=== PATIENT | male | born 1960 | race Caucasian/White ===

== ENCOUNTER 2019-02-03 07:06 | Day surgery (SDC) | payer BC ==
[2019-01-30 16:39] LABS: BASOPHILS # (AUTO) 0.1 X10'3 (0-0.2); BASOPHILS % (AUTO) 0.5 % (0-1); EOSINOPHILS # (AUTO) 0.2 X10'3 (0-0.9); EOSINOPHILS % (AUTO) 2.4 % (0-6); LYMPHOCYTES # (AUTO) 3.3 X10'3 (1.1-4.8); LYMPHOCYTES % (AUTO) 33.9 % (21-51); MEAN CORPUSCULAR HEMOGLOBIN 30.2 PG (27.0-31.0); MEAN CORPUSCULAR HGB CONC 32.9 g/dL (33.0-36.5); MEAN CORPUSCULAR VOLUME 91.7 FL (78-98); MEAN PLATELET VOLUME 7.1 FL (7.4-10.4); MONOCYTES # (AUTO) 0.9 X10'3 (0-0.9); MONOCYTES % (AUTO) 8.7 % (2-12); NEUTROPHILS # (AUTO) 5.4 X10'3 (1.8-7.7); NEUTROPHILS % (AUTO) 54.5 % (42-75); PRE OP HEMATOCRIT 45.9 % (42.0-52.0); PRE OP HEMOGLOBIN 15.1 g/dL (14.0-17.9); PRE OP PLATELET COUNT 196 X10'3 (140-440); RED BLOOD COUNT 5.01 X10'6 (4.70-6.10); RED CELL DISTRIBUTION WIDTH 13.8 % (11.5-14.5)
[2019-01-30 16:47] LABS: ALBUMIN 3.7 G/DL (3.4-5.0); ALBUMIN/GLOBULIN RATIO 1.1 (1.1-1.5); ALKALINE PHOSPHATASE 61 IU/L (46-116); BLOOD UREA NITROGEN 20 MG/DL (7-18); CALCIUM 9.3 MG/DL (8.5-10.1); CHLORIDE 106 MMOL/L (99-107); CREATININE 0.74 MG/DL (0.60-1.10); PRE OP ALT 34 U/L (30-65); PRE OP ANION GAP 8 (8-16); PRE OP AST 19 U/L (10-37); PRE OP BILIRUB, TOTAL 0.5 MG/DL (0.0-1.0); PRE OP GLUCOSE 86 MG/DL (70-104); PRE OP SODIUM 142 MMOL/L (135-145); TOTAL PROTEIN 7.1 G/DL (6.4-8.2); eGFR > 90 ML/MIN
[~2019-02-03] VITALS: Ht 177.8 cm; Wt 133.1 kg
[~2019-02-03 07:06] MED LIST: ATOR10TA70 PO; CETI-194 PO; LISI2.5T2 PO; PSYL3.4P5 PO; cefazolin/dext.iso 2gm/100 ML IV ONE; famotidine 20mg tablet PO ONE; ringers solution, lacted 1,000 ML IV SCH
[2019-02-03] MEDS ORDERED: proCHLORperazine 10 MG/2 ml inj IV PRN (07:25)
[2019-02-03] MEDS ORDERED: meperidine/PF 25mg/ml syringe IV PRN ×3 (07:25)
[2019-02-03] MEDS ORDERED: ondansetron/PF 4mg/2ml inj IV PRN (07:25)
[2019-02-03] MEDS ORDERED: ringers solution, lacted 1,000 ML IV SCH (07:25)
[2019-02-03] MEDS ORDERED: morphine 4 MG/ML inj SYRINge IV PRN ×2 (07:25)
[2019-02-03] MEDS ORDERED: LIDOcaine 1% 30ml preserv. free vial ONE (07:32)
[2019-02-03 08:57] VITALS: BP 133/75
[2019-02-03] MEDS ORDERED: MIDAZolam 5mg/5ml vial ONE (08:58)
[2019-02-03] MEDS ORDERED: fentaNYL/PF 50MCG/1 ML 2ML syringe ONE (08:58)
[2019-02-03 08:59] VITALS: BP 133/75
[2019-02-03] MEDS ORDERED: BUPIVAcaine/PF 2.5mg/ml (0.25%) 10ml vial ONE (09:01)
[2019-02-03] MEDS ORDERED: ketorolac trometh. 30mg/ml inj. ONE (09:16)
[2019-02-03] MEDS ORDERED: meperidine/PF 50mg/ml syringe ONE (09:47)
[2019-02-03 10:05] VITALS: BP 132/91
--- NOTE | 2019-02-03 10:05 | NUR ---
Received from OR via BED, accompanied by Anesthesiologist DR KIMBLE and report given by Anesthesiolgist. PATIENT A&OX4, DENIES PAIN, V/S WNL, NEUROVASCULAR CHECKS INTACT, SCD ON, RIGHT WRIST DRESSING CDI ELEVATED WITH ICE BAG APPLIED. 20G LUE.
[2019-02-03 10:15] VITALS: BP 129/81
[2019-02-03 10:25] VITALS: BP 133/74
[2019-02-03 10:35] VITALS: BP 136/77
--- NOTE | 2019-02-03 10:35 | NUR ---
PATIENT A&OX4, DENIES PAIN, V/S WNL, NEUROVASCULAR CHECKS INTACT, SCD OFF, RIGHT WRIST DRESSING CDI ELEVATED WITH ICE BAG APPLIED. 20G LUE D/C WITH NO COMPLICATIONS OBSERVED. I HAVE REVIEWED D/C INSTRUCTIONS WITH PATIENT AND FAMILY AND THEY HAVE VERBALIZED UNDERSTANDING. PATIENT D/C HOME WITH FAMILY TO TRANSPORT AND ALL BELONGINGS..
== END 2019-02-03 10:35 | disposition home or self-care (01) ==
LOC: PAS 07:06
PROVIDERS: ATTEND Orthopaedic Surgery Hand Surgery
DX: G56.01 Carpal tunnel syndrome, right upper limb (principal); G56.21 Lesion of ulnar nerve, right upper limb; Z72.89 Other problems related to lifestyle; M17.11 Unilateral primary osteoarthritis, right knee; Z98.890 Other specified postprocedural states; Z79.899 Other long term (current) drug therapy; Z79.82 Long term (current) use of aspirin
CPT/HCPCS: 36415; 64718; 64721; 80053; 82948; 85025; 93005; A6222; J1885; J2001; J2175; J2250; J3010; J3490; A6449; J7120

== ENCOUNTER 2019-03-10 05:49 | Day surgery (SDC) | payer BC ==
[~2019-03-10] VITALS: Ht 177.8 cm; Wt 138.3 kg
[~2019-03-10 05:49] MED LIST changes: -cefazolin/dext.iso 2gm/100 ML IV ONE
[2019-03-10] MEDS ORDERED: MESSAGE TO NURSING PO ONE (06:00)
[2019-03-10] MEDS ORDERED: LIDOcaine 1% (10mg/ml) 2ml vial ONE (06:23)
[2019-03-10] MEDS ORDERED: BUPIVAcaine/PF 2.5mg/ml (0.25%) 10ml vial ONE (06:39)
[2019-03-10 06:56] VITALS: BP 149/79
[2019-03-10 06:58] VITALS: BP 149/79
[2019-03-10 07:03] LABS: BASOPHILS # (AUTO) 0.1 X10'3 (0-0.2); BASOPHILS % (AUTO) 0.7 % (0-1); EOSINOPHILS # (AUTO) 0.2 X10'3 (0-0.9); EOSINOPHILS % (AUTO) 2.6 % (0-6); LYMPHOCYTES # (AUTO) 2.5 X10'3 (1.1-4.8); LYMPHOCYTES % (AUTO) 31.2 % (21-51); MEAN CORPUSCULAR HEMOGLOBIN 31.1 PG (27.0-31.0); MEAN CORPUSCULAR HGB CONC 34.1 g/dL (33.0-36.5); MONOCYTES # (AUTO) 0.8 X10'3 (0-0.9); MONOCYTES % (AUTO) 9.3 % (2-12); NEUTROPHILS # (AUTO) 4.6 X10'3 (1.8-7.7); NEUTROPHILS % (AUTO) 56.2 % (42-75); PRE OP HEMATOCRIT 44.3 % (42.0-52.0); PRE OP HEMOGLOBIN 15.1 g/dL (14.0-17.9); PRE OP PLATELET COUNT 171 X10'3 (140-440); RED BLOOD COUNT 4.87 X10'6 (4.70-6.10); RED CELL DISTRIBUTION WIDTH 13.5 % (11.5-14.5)
[2019-03-10 07:10] LABS: ALBUMIN 3.9 G/DL (3.4-5.0); ALBUMIN/GLOBULIN RATIO 1.2 (1.1-1.5); ALKALINE PHOSPHATASE 57 IU/L (46-116); BLOOD UREA NITROGEN 21 MG/DL (7-18); BUN/CREATININE RATIO 23.6 (5.4-32.0); CALCIUM 8.6 MG/DL (8.5-10.1); CHLORIDE 107 MMOL/L (99-107); CREATININE 0.89 MG/DL (0.60-1.10); PRE OP ALT 36 U/L (30-65); PRE OP ANION GAP 10 (8-16); PRE OP AST 20 U/L (10-37); PRE OP BILIRUB, TOTAL 0.8 MG/DL (0.0-1.0); PRE OP GLUCOSE 108 MG/DL (70-104); PRE OP POTASSIUM 3.9 MMOL/L (3.4-5.1); PRE OP SODIUM 142 MMOL/L (135-145); TOTAL CARBON DIOXIDE 24.7 MMOL/L (24-32); TOTAL PROTEIN 7.1 G/DL (6.4-8.2); eGFR 88 ML/MIN
[2019-03-10] MEDS ORDERED: LIDOcaine 1% 30ml preserv. free vial ONE (07:45)
[2019-03-10] MEDS ORDERED: MIDAZolam 5mg/5ml vial ONE (07:49)
[2019-03-10] MEDS ORDERED: fentaNYL/PF 50MCG/1 ML 2ML syringe ONE (07:49)
[2019-03-10] MEDS ORDERED: ketorolac trometh. 30mg/ml inj. ONE (07:51)
[2019-03-10] MEDS ORDERED: ringers solution, lacted 1,000 ML IV SCH (08:18)
[2019-03-10] MEDS ORDERED: proCHLORperazine 10 MG/2 ml inj IV PRN (08:20)
[2019-03-10] MEDS ORDERED: morphine 4 MG/ML inj SYRINge IV PRN ×2 (08:20)
[2019-03-10] MEDS ORDERED: ondansetron/PF 4mg/2ml inj IV PRN (08:20)
[2019-03-10] MEDS ORDERED: meperidine/PF 25mg/ml syringe IV PRN ×3 (08:20)
[2019-03-10 08:36] VITALS: BP 108/82
--- NOTE | 2019-03-10 08:36 | NUR ---
Received from OR via [facility] , accompanied by Anesthesiologist RAQUEL and report given by Anesthesiolgist. PATIENT WITH 20G PIV IN RIGHT WRIST, LEFT WRIST DRESSING IS CDI. DENIES PAIN. MAE. BROWN. Addendum: 03/10/19 at 0842 by Simon Darnell RN, RN Amended: Links added.
[2019-03-10 08:46] VITALS: BP 111/66
[2019-03-10 08:56] VITALS: BP 121/78
--- NOTE | 2019-03-10 09:06 | NUR ---
ALL DC CRITERIA HAS BEEN MET. IV TAKEN OUT WITHOUT COMPLICATIONS. ALL INSTRUCTIONS COVERED AND ALL QUESTIONS ANSWERED. DRESSINGS CDI. OUT VIA WHEELCHAIR TO PERSONAL VEHICLE WHERE PATIENT WAS SECURED IN AND DRIVEN HOME BY FAMILY. Addendum: 03/10/19 at 0921 by Simon Darnell RN, RN Amended: Links added.
== END 2019-03-10 09:06 | disposition home or self-care (01) ==
LOC: PAS 05:49
PROVIDERS: ATTEND Orthopaedic Surgery Hand Surgery
DX: G56.02 Carpal tunnel syndrome, left upper limb (principal); I10 Essential (primary) hypertension; E66.01 Morbid (severe) obesity due to excess calories; Z68.41 Body mass index [BMI] 40.0-44.9, adult; Z88.8 Allergy status to other drugs, medicaments and biological substances; Z79.899 Other long term (current) drug therapy
CPT/HCPCS: 36415; 64721; 80053; 85025; J1885; J2001; J2250; J3010; J3490; A4215; J7120

== ENCOUNTER 2019-07-04 06:00 | Emergency (ER) | payer BC ==
[~2019-07-04] VITALS: Ht 177.8 cm; Wt 135.0 kg
[~2019-07-04 06:00] MED LIST changes: -famotidine 20mg tablet PO ONE; -ringers solution, lacted 1,000 ML IV SCH
[2019-07-04] MEDS ORDERED: normal saline 1000ml 1,000 ML IV ONE (06:16)
[2019-07-04] MEDS ORDERED: normal saline 1000ML IV soln IVB ONE (06:20)
[2019-07-04] MEDS ORDERED: morphine 2 MG/ML inj. syringe IV ONE (06:25)
[2019-07-04 07:03] LABS: BASOPHILS % (AUTO) 0.3 % (0-1); EOSINOPHILS % (AUTO) 0.3 % (0-6); HEMOGLOBIN 14.6 g/dl (14.0-17.9); LYMPHOCYTES # (AUTO) 1.4 X10'3 (1.1-4.8); LYMPHOCYTES % (AUTO) 9.4 % (21-51); MEAN CORPUSCULAR HEMOGLOBIN 30.8 PG (27.0-31.0); MEAN CORPUSCULAR HGB CONC 34.1 g/dL (33.0-36.5); MEAN CORPUSCULAR VOLUME 90.6 FL (78-98); MEAN PLATELET VOLUME 7.7 FL (7.4-10.4); MONOCYTES # (AUTO) 1.1 X10'3 (0-0.9); NEUTROPHILS # (AUTO) 11.8 X10'3 (1.8-7.7); PLATELET COUNT 173 X10'3 (140-440); RED BLOOD COUNT 4.74 X10'6 (4.70-6.10); RED CELL DISTRIBUTION WIDTH 13.3 % (11.5-14.5); WHITE BLOOD COUNT 14.4 X10'3 (4.5-11.0)
--- NOTE | 2019-07-04 07:05 | NUR ---
Pt out to CT
[2019-07-04 07:21] LABS: ALANINE AMINOTRANSFERASE 28 U/L (12-78); ALBUMIN 3.8 G/DL (3.4-5.0); ALBUMIN/GLOBULIN RATIO 1.3 (1.1-1.5); ALKALINE PHOSPHATASE 63 IU/L (46-116); ANION GAP 11 (8-16); ASPARTATE AMINO TRANSFERASE 18 U/L (10-37); BILIRUBIN,TOTAL 0.8 MG/DL (0.1-1.0); BLOOD UREA NITROGEN 15 MG/DL (7-18); CALCIUM 8.6 MG/DL (8.5-10.1); CHLORIDE 105 MMOL/L (99-107); CREATININE 0.79 MG/DL (0.60-1.10); GLUCOSE 118 MG/DL (70-104); LIPASE 71 U/L (73-393); POTASSIUM 3.5 MMOL/L (3.5-5.1); SODIUM 140 MMOL/L (135-145); TOTAL PROTEIN 6.8 G/DL (6.4-8.2); eGFR > 90 ML/MIN
[2019-07-04] MEDS ORDERED: metroNIDAZOLE-Flagyl 500mg/NS 100 ML IV STA (08:03)
[2019-07-04] MEDS ORDERED: levoFLOXACIN-Levaquin 500mg/D5 100 ML IV ONE (08:05)
[2019-07-04] MEDS ORDERED: morphine 4 MG/ML inj SYRINge IV ONE (09:20)
[2019-07-04] MEDS ORDERED: METR500T PO (09:24)
[2019-07-04] MEDS ORDERED: LEVO500T2 PO ×2 (09:24→09:26)
[2019-07-04] MEDS ORDERED: IBUP-1984 PO (09:33)
[2019-07-04] MEDS ORDERED: OXYC-145 PO (09:33)
[2019-07-04 11:23] VITALS: BP 136/87
== END 2019-07-04 11:26 | disposition home or self-care (01) ==
LOC: ER 06:01
DX: K57.32 Diverticulitis of large intestine without perforation or abscess without bleeding (principal); Z88.6 Allergy status to analgesic agent; Z79.899 Other long term (current) drug therapy
CPT/HCPCS: 36415; 74176; 80053; 83690; 85025; 96365; 96366; 96368; 96375; 96376; 99284; J1956; J2270; J3490; J7030

== ENCOUNTER 2023-10-18 16:43 | Emergency (ER) | payer BC ==
[~2023-10-18] VITALS: Ht 172.7 cm; Wt 140.0 kg
[~2023-10-18 16:43] MED LIST changes: +LISI2.5T14 PO; -LISI2.5T2 PO; +OXYC-145 PO
[2023-10-18 16:55] VITALS: TEMP 98
[2023-10-18 18:31] LABS: BASOPHILS # (AUTO) 0.1 X10'3 (0-0.2); BASOPHILS % (AUTO) 0.6 % (0-1); EOSINOPHILS # (AUTO) 0.2 X10'3 (0-0.9); EOSINOPHILS % (AUTO) 1.6 % (0-6); HEMATOCRIT 46.1 % (42.0-52.0); HEMOGLOBIN 15.6 g/dl (14.0-17.9); LYMPHOCYTES # (AUTO) 3.4 X10'3 (1.1-4.8); MEAN CORPUSCULAR HEMOGLOBIN 30.5 PG (27.0-31.0); MEAN CORPUSCULAR HGB CONC 33.9 g/dL (33.0-36.5); MEAN CORPUSCULAR VOLUME 89.9 FL (78-98); MEAN PLATELET VOLUME 7.4 FL (7.4-10.4); MONOCYTES # (AUTO) 0.9 X10'3 (0-0.9); MONOCYTES % (AUTO) 8.6 % (2-12); NEUTROPHILS # (AUTO) 6.1 X10'3 (1.8-7.7); NEUTROPHILS % (AUTO) 57.2 % (42-75); PLATELET COUNT 178 X10'3 (140-440); RED BLOOD COUNT 5.13 X10'6 (4.70-6.10); RED CELL DISTRIBUTION WIDTH 13.8 % (11.5-14.5); WHITE BLOOD COUNT 10.7 X10'3 (4.5-11.0)
[2023-10-18 18:42] LABS: ANION GAP 14 (8-16); BLOOD UREA NITROGEN 13 MG/DL (7-18); BUN/CREATININE RATIO 15.7 (10.0-20.0); CALCIUM 9.2 MG/DL (8.5-10.1); CHLORIDE 107 MMOL/L (99-107); CREATININE 0.83 MG/DL (0.60-1.10); GLUCOSE 91 MG/DL (70-104); LIPASE 21 U/L (16-77); POTASSIUM 3.7 MMOL/L (3.5-5.1); SODIUM 145 MMOL/L (135-145); TOTAL CARBON DIOXIDE 24.2 MMOL/L (24-32); eCRCL 89 ML/MIN; eGFR > 90 ML/MIN
[2023-10-18] MEDS: ketorolac tromethamine 15mg/ml inj. IM ONE (20:36)
[2023-10-18 20:37] VITALS: BP 142/84; PULSE 88; RESP 14; O2SAT 99
[2023-10-18] MEDS: ketorolac trometh inj. 60 MG/2 ML VIAL IM ONE (20:37)
== END 2023-10-18 20:39 | disposition home or self-care (01) ==
LOC: ER 16:57
DX: N20.1 Calculus of ureter (principal)
CPT/HCPCS: 36415; 74176; 80048; 83690; 85025; 96372; 99285; J1885

== ENCOUNTER 2023-10-27 04:28 | Emergency (ER) | payer BC ==
[~2023-10-27] VITALS: Ht 177.8 cm; Wt 138.6 kg
[2023-10-27 04:30] VITALS: TEMP 97.9
[2023-10-27] MEDS ORDERED: ketorolac trometh. 30mg/ml inj. IV ONE (07:45)
[2023-10-27] MEDS: normal saline 1000ml 1,000 ML IV ONE (07:56)
[2023-10-27] MEDS: oxyCODONE IR 5mg (immed. release) tablet PO ONE (07:56)
[2023-10-27] MEDS: ketorolac tromethamine 15mg/ml inj. IV ONE (07:56)
[2023-10-27 08:04] LABS: BASOPHILS % (AUTO) 0.4 % (0-1); EOSINOPHILS % (AUTO) 0 % (0-6); HEMATOCRIT 47.1 % (42.0-52.0); LYMPHOCYTES # (AUTO) 0.8 X10'3 (1.1-4.8); LYMPHOCYTES % (AUTO) 7.7 % (21-51); MEAN CORPUSCULAR HEMOGLOBIN 30.6 PG (27.0-31.0); MEAN CORPUSCULAR HGB CONC 33.9 g/dL (33.0-36.5); MEAN CORPUSCULAR VOLUME 90.1 FL (78-98); MEAN PLATELET VOLUME 8.8 FL (7.4-10.4); MONOCYTES # (AUTO) 0.2 X10'3 (0-0.9); MONOCYTES % (AUTO) 2.1 % (2-12); NEUTROPHILS # (AUTO) 9.7 X10'3 (1.8-7.7); NEUTROPHILS % (AUTO) 89.8 % (42-75); PLATELET COUNT 171 X10'3 (140-440); RED BLOOD COUNT 5.23 X10'6 (4.70-6.10); RED CELL DISTRIBUTION WIDTH 13.8 % (11.5-14.5); WHITE BLOOD COUNT 10.8 X10'3 (4.5-11.0)
[2023-10-27 08:25] LABS: BILIRUBIN,URINE NEGATIVE (Neg); CLARITY,URINE CLOUDY (Clear); COLOR,URINE YELLOW (Yellow); GLUCOSE, URINE NEGATIVE (Neg); KETONES,URINE 15 mg/dl (Neg); LEUKOCYTE ESTERASE ,URINE NEGATIVE (Neg); NITRITES, URINE NEGATIVE (Neg); OCCULT BLOOD,URINE NEGATIVE (Neg); PROTEIN,URINE NEGATIVE (Neg); UROBILINOGEN,URINE 0.2 E.U/dL (0.2-1.0)
[2023-10-27 08:30] LABS: UA COLLECTION TYPE CLN CATCH MIDSTREAM
[2023-10-27 08:31] LABS: MUCUS STRANDS MODERATE /LPF (Neg); SQUAMOUS EPITHELIAL CELL,UR FEW /LPF (FEW)
[2023-10-27 08:32] LABS: AMORPHOUS PHOSPHATES 4+
[2023-10-27 08:33] LABS: BACTERIA,URINE NONE SEEN /HPF (Neg); WBC,URINE 0-4 /HPF (0-4)
[2023-10-27 08:36] LABS: ALANINE AMINOTRANSFERASE 37 U/L (12-78); ALBUMIN 4.6 G/DL (3.4-5.0); ALBUMIN/GLOBULIN RATIO 1.2 (1.1-1.5); ALKALINE PHOSPHATASE 72 IU/L (46-116); ANION GAP 12 (8-16); ASPARTATE AMINO TRANSFERASE 26 U/L (10-37); BILIRUBIN,TOTAL 0.9 MG/DL (0.1-1.0); BLOOD UREA NITROGEN 16 MG/DL (7-18); CALCIUM 9.7 MG/DL (8.5-10.1); CHLORIDE 100 MMOL/L (99-107); GLUCOSE 162 MG/DL (70-104); LIPASE 22 U/L (16-77); POTASSIUM 3.8 MMOL/L (3.5-5.1); SODIUM 142 MMOL/L (135-145); TOTAL PROTEIN 8.6 G/DL (6.4-8.2); eCRCL 79 ML/MIN; eGFR 76 ML/MIN
[2023-10-27] MEDS ORDERED: OXYC-145 PO (09:53)
[2023-10-27 10:16] VITALS: BP 150/95; PULSE 85; RESP 16; O2SAT 98
== END 2023-10-27 10:16 | disposition home or self-care (01) ==
LOC: ER 04:29
DX: N23 Unspecified renal colic (principal); N20.1 Calculus of ureter; Z88.6 Allergy status to analgesic agent; Z79.899 Other long term (current) drug therapy
CPT/HCPCS: 36415; 74176; 80053; 81001; 83690; 85025; 96361; 96374; 99285; J1885; J7030